=== PATIENT | female | born 1960 | race Two or more races ===

== ENCOUNTER → 2020-09-11 | Outpatient (CLI) | payer OTHER ==
--- NOTE | 2020-09-17 15:41 | RAD ---
[facility] BILAT SCREEN+KING 09/11/2020 11:15 AM INDICATION: Asymptomatic screening mammogram. COMPARISON: None available TECHNIQUE: 3D tomosynthesis was performed in CC and MLO projections. 2D views were obtained from the 3D data. CAD was utilized as needed. FINDINGS: Breast density: Category C: The breats are heterogeneously dense, which may obscure small masses. Right breast: There are no suspicious microcalcifications, masses or areas of architectural distortio n. Left breast: There are no suspicious microcalcifications, masses or areas of architectural distortion . Bilateral axillary lymphadenopathy with loss of normal fatty hilum and increased cortical thickness. Further evaluation with bilateral axillary ultrasound is recommended. IMPRESSION: Incomplete bilateral mammogram. Ultrasound evaluation of the axilla recommended bilaterally. BI-RADS category: 0; Incomplete Recommendations: Recommend additional imaging for which the patient will need to be called back. Electronically signed by: Reina Santana MD (09/17/2020 3:39 PM) [id number]
== END ==
LOC: MAMMO 11:13
PROVIDERS: ATTEND Obstetrics & Gynecology
DX: Z12.31 Encounter for screening mammogram for malignant neoplasm of breast (principal); Z01.419 Encounter for gynecological examination (general) (routine) without abnormal findings; R59.0 Localized enlarged lymph nodes
CPT/HCPCS: 77063; 77067

== ENCOUNTER → 2020-09-30 | Outpatient (CLI) | payer OTHER ==
--- NOTE | 2020-10-01 18:29 | RAD ---
DATE: 09/30/2020 EXAM: EXT NON VASC LTD BILATERAL HISTORY: Abnormal lymph nodes in the bilateral axilla COMPARISON: Screening mammogram 09/11/2020 and 09/30/2020 FINDINGS: There are multiple small round hypoechoic lymph nodes in the bilateral axilla. The largest on the right measures 1.1 x 1.1 x 0.8 cm. Another small lymph node in the right axilla measures 1.0 x 0.8 x 0.9 cm. The largest on the left measures 1.4 x 0.7 x 0.6 cm. IMPRESSION: Small bilateral axillary lymph nodes. These are nonenlarged but are somewhat rounded and hypoechoic. Given the fact that these are seen bilaterally and symmetric, these are most likely reactive/related to a systemic process or autoimmune disease rather than metastatic disease. Additionally, some of these were present on mammogram from 2016 and it is possible that some of the apparent new lymph nodes on recent mammogram may have been out of the [id number] and 2016. Recommend 6 month follow-up ultrasound to ensure stability. BI-RADS CATEGORY: 3 PROBABLY BENIGN FINDING(S)-SHORT INTERVAL FOLLOW-UP SUGGESTED RECOMMENDED FOLLOW-UP: 6M 6 MONTH FOLLOW-UP
== END ==
LOC: US 13:12
PROVIDERS: ATTEND Obstetrics & Gynecology
DX: R92.8 Other abnormal and inconclusive findings on diagnostic imaging of breast (principal)
CPT/HCPCS: 76882